=== PATIENT | female | born 1960 | race Caucasian/White ===

== ENCOUNTER → 2017-01-09 | Day surgery (SDC) | payer BC, OTHER ==
[~2017-01-09] VITALS: Ht 162.6 cm; Wt 72.6 kg
[~2017-01-09] MED LIST: ACETAMINOPH W/CODEINE #3 TAB UD PO PRN; CELE1CAP7 PO; CIPRODEX OTIC SUSP 7.5ML As Ordered ONE; EPINEPHrine 1MG/ML INJ 30ML MD-VIAL As Ordered ONE; EXCETAB80 PO; FLON1SPR; GLYCOPYRROLATE INJ 0.2 MG/ML 2 ML VIAL As Ordered ONE; I COOL PO; LEVO75TA3 PO; LEVO88TA3 PO; LIDOCAINE 2% INJ 100 MG/5 ML SDV (FOR ANES.) As Ordered ONE; LIDOCAINE W/EPINEPHRINE 1% 20ML VIAL As Ordered ONE; LR 1,000 ML IV SCH; MEPERIDINE INJ 25 MG/ML VIAL (J2175) IV PRN; METOCLOPRAMIDE INJ 10MG/2ML VIAL (J2765) IV PRN; MIDAZOLAM INJ 2 MG/2 ML VIAL (J2250) As Ordered ONE; MORPHINE 10 MG/ML 1ML VIAL IV PRN; NEOSTIGMINE 1MG/ML 5 ML SYRINGE (J2710) As Ordered ONE; ONDANSETRON 4MG/2ML VIAL (J2405) As Ordered ONE; ONDANSETRON 4MG/2ML VIAL (J2405) IV PRN; PANT40TA2 PO; PERCOCET 5MG/325MG TAB PO PRN; PROPOFOL 200 MG/20 ML VIAL As Ordered ONE; ROCURONIUM BROMIDE 50 MG/5 ML VIAL As Ordered ONE; SCOPOLAMINE 1.5 MG TRANSDERMAL As Ordered ONE; SCOPOLAMINE 1.5 MG TRANSDERMAL TOP ONE; dexameTHASONE 4 MG/ML 1ML VIAL (J1100) As Ordered ONE; fentaNYL 100 MCG/2 ML INJECTION (J3010) As Ordered ONE; fentaNYL 100 MCG/2 ML INJECTION (J3010) IV PRN
[2017-01-09 13:25] VITALS: BP 141/75
--- NOTE | 2017-01-09 17:19 | RO ---
DATE OF PROCEDURE: 01/09/2017 PREPROCEDURE DIAGNOSIS: Chronic left tympanic membrane perforation. POSTPROCEDURE DIAGNOSIS: Chronic left tympanic membrane perforation. PROCEDURE: Left tympanoplasty. SURGEON: Dr. 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 DESCRIPTION OF PROCEDURE: Under general anesthesia with the patient intubated, the patient was draped in the usual manner. I infiltrated the ear with the lidocaine and epinephrine, cleaned with ear with Betadine and saline. I made a posterior tympanotomy incision on that left side and radial incision laterally. I made a postauricular incision. Joined those two dissections. I harvested a temporalis fascia graft. I then made an incision just anterior and lateral to the annulus and then elevated the skin of the canal laterally. Once this was done, I removed the epithelium off the tympanic membrane and I removed the myringosclerosis. I made an incision around the handle of the malleus. I put a bit of Gelfoam in the middle ear and then I put the graft in and put it on the lateral aspect of the drum, tucked it beneath the handle of the malleus and then put a bit of Gelfoam on top of it and then put Silastic sheeting on top of that. The canal was returned to original position, I stented open with Iodoform gauze, then I closed the wound with #3-0 chromic, #3-0 Prolene. The patient tolerated the procedure well and was extubated and transferred to the recovery room in excellent condition.
== END ==
LOC: M SDC 06:55
PROVIDERS: ATTEND Otolaryngology
DX: H72.92 Unspecified perforation of tympanic membrane, left ear (principal); E03.9 Hypothyroidism, unspecified; K44.9 Diaphragmatic hernia without obstruction or gangrene; K21.9 Gastro-esophageal reflux disease without esophagitis; M19.90 Unspecified osteoarthritis, unspecified site; M54.9 Dorsalgia, unspecified; R06.83 Snoring; Z88.0 Allergy status to penicillin; Z88.1 Allergy status to other antibiotic agents; Z79.899 Other long term (current) drug therapy
CPT/HCPCS: 69631; J1100; J2250; J2405; J2710; J3010

== ENCOUNTER 2018-04-02 10:25 | Day surgery (SDC) | payer BC, OTHER ==
[2018-04-02] MEDS: NS 1,000 ML IV (10:41)
[2018-04-02] MEDS ORDERED: LIDOCAINE 2% INJ 100 MG/5 ML SDV (FOR ANES.) As Ordered (11:47)
[2018-04-02] MEDS ORDERED: PROPOFOL 200 MG/20 ML VIAL As Ordered (11:47)
[2018-04-02] MEDS ORDERED: fentaNYL 100 MCG/2 ML INJECTION (J3010) As Ordered (11:47)
== END 2018-04-02 12:15 | disposition home or self-care (01) ==
LOC: M OPP 10:25
DX: K21.9 Gastro-esophageal reflux disease without esophagitis (principal); K20.9 Esophagitis, unspecified; K31.9 Disease of stomach and duodenum, unspecified; K29.70 Gastritis, unspecified, without bleeding; K44.9 Diaphragmatic hernia without obstruction or gangrene; E03.9 Hypothyroidism, unspecified; M54.2 Cervicalgia; R06.83 Snoring; G47.30 Sleep apnea, unspecified; Z98.1 Arthrodesis status; Z86.79 Personal history of other diseases of the circulatory system; Z88.0 Allergy status to penicillin; Z79.899 Other long term (current) drug therapy
CPT/HCPCS: 43239

== ENCOUNTER → 2018-07-20 | Outpatient (CLI) | payer BC, OTHER | LOC: M RAD 14:35 | DX: J32.4 Chronic pansinusitis (principal) | CPT/HCPCS: 70486 ==

== ENCOUNTER → 2023-08-27 | Outpatient (CLI) | payer BC, OTHER ==
[~2023-08-27] MED LIST changes: -ACETAMINOPH W/CODEINE #3 TAB UD PO PRN; -CELE1CAP7 PO; +CELE1CAP99 PO; -CIPRODEX OTIC SUSP 7.5ML As Ordered ONE; -EPINEPHrine 1MG/ML INJ 30ML MD-VIAL As Ordered ONE; -GLYCOPYRROLATE INJ 0.2 MG/ML 2 ML VIAL As Ordered ONE; -LIDOCAINE 2% INJ 100 MG/5 ML SDV (FOR ANES.) As Ordered ONE; -LIDOCAINE W/EPINEPHRINE 1% 20ML VIAL As Ordered ONE; -LR 1,000 ML IV SCH; -MEPERIDINE INJ 25 MG/ML VIAL (J2175) IV PRN; -METOCLOPRAMIDE INJ 10MG/2ML VIAL (J2765) IV PRN; -MIDAZOLAM INJ 2 MG/2 ML VIAL (J2250) As Ordered ONE; -MORPHINE 10 MG/ML 1ML VIAL IV PRN; -NEOSTIGMINE 1MG/ML 5 ML SYRINGE (J2710) As Ordered ONE; -ONDANSETRON 4MG/2ML VIAL (J2405) As Ordered ONE; -ONDANSETRON 4MG/2ML VIAL (J2405) IV PRN; +PANT40TA29 PO; -PERCOCET 5MG/325MG TAB PO PRN; -PROPOFOL 200 MG/20 ML VIAL As Ordered ONE; -ROCURONIUM BROMIDE 50 MG/5 ML VIAL As Ordered ONE; -SCOPOLAMINE 1.5 MG TRANSDERMAL As Ordered ONE; -SCOPOLAMINE 1.5 MG TRANSDERMAL TOP ONE; +VITA500079 PO; +ZANT150T40 PO; -dexameTHASONE 4 MG/ML 1ML VIAL (J1100) As Ordered ONE; -fentaNYL 100 MCG/2 ML INJECTION (J3010) As Ordered ONE; -fentaNYL 100 MCG/2 ML INJECTION (J3010) IV PRN
== END ==
LOC: M PLAIMG 09:02
PROVIDERS: ATTEND Otolaryngology
DX: J30.2 Other seasonal allergic rhinitis (principal)